=== PATIENT | female | born 1970 | race Hispanic/Latino ===

== ENCOUNTER 2017-10-29 08:08 | Observation (INO) | payer MEDICAID ==
[~2017-10-29] VITALS: Ht 162.6 cm; Wt 87.3 kg
[2017-10-29 08:37] LABS: BASOPHILS % (AUTO) 0.9 % (0.0-5.0); EOSINOPHILS % (AUTO) 1.4 % (0.0-8.0); HEMATOCRIT 45.1 % (36-48); LYMPHOCYTES % (AUTO) 28.5 % (21.0-51.0); MEAN CORPUSCULAR HEMOGLOBIN 30.1 pg (27.0-33.0); MEAN CORPUSCULAR HGB CONC 34.6 g/dL (32.0-36.0); MONOCYTES % (AUTO) 8.7 % (3.0-13.0); NEUTROPHILS % (AUTO) 60.5 % (40.0-77.0); PLATELET COUNT (AUTO) 362 K/uL (130-400); RED BLOOD CELL COUNT(AUTO) 5.19 MIL/uL (4.00-5.50); RED CELL DISTRIBUTION WIDTH 14.5 % (11.0-15.5); WHITE BLOOD COUNT (AUTO) 8.1 K/uL (4.8-10.8)
[2017-10-29 08:48] LABS: CARBON DIOXIDE 30 mmol/L (21-32); CHLORIDE 105 mmol/L (101-111); CREATININE 0.9 mg/dL (0.5-1.5); GLOMERULAR FILTR. RATE CALC 71 mL/min (>60); GLUCOSE,RANDOM 111 mg/dL (70-105); POTASSIUM 4.1 mmol/L (3.5-5.1); SODIUM SERUM 141 mmol/L (136-145); UREA NITROGEN, BLOOD 14 mg/dL (7-18)
[2017-10-29 09:01] LABS: ALANINE AMINOTRANSFERASE 37 U/L (12-78); ALBUMIN 4.3 g/dL (3.5-5.0); ASPARTATE AMINOTRANSFERASE 24 U/L (10-37); BILIRUBIN,TOTAL 0.7 mg/dL (0.2-1.0); CREATINE KINASE MB < 0.5 ng/mL (0.5-3.6); CREATINE KINASE, TOTAL 58 U/L (21-232); TOTAL PROTEIN, SERUM 7.7 g/dL (6.0-8.3)
[2017-10-29 09:10] LABS: INR 0.96 (0.85-1.15); PARTIAL THROMBOPLASTIN TIME 25.2 SEC (26.3-35.5); PROTHROMBIN TIME 10.1 SEC (9.6-11.6)
[2017-10-29 09:20] LABS: APPEARANCE,URINE Cloudy (CLEAR); BILIRUBIN,URINE Negative (NEGATIVE); COLOR,URINE Yellow (YELLOW); GLUCOSE, URINE (UA) Negative (NEGATIVE); KETONES,URINE Negative (NEGATIVE); LEUKOCYTE ESTERASE ,URINE Trace (NEGATIVE); NITRATE,URINE Negative (NEGATIVE); OCCULT BLOOD,URINE Negative (NEGATIVE); PROTEIN,URINE Negative (NEGATIVE); UROBILINOGEN,URINE 0.2 mg/dL (0.2-1.0)
[2017-10-29 09:34] LABS: BACTERIA,URINE Few /HPF (None Seen); SQUAMOUS EPITHELIAL CELL,UR Few /HPF (0-2); WBC,URINE 0-1 /HPF (0-1)
[2017-10-29 09:40] LABS: HCG,QUAL RESULT NEGATIVE (NEGATIVE)
[2017-10-29 10:07] LABS: CHOLESTEROL 219 mg/dL (<200); HDL CHOLESTEROL 41 mg/dL (35-85); LDL DIRECT 142 mg/dL (0-99); TRIGLYCERIDES 236 mg/dL (30-200)
[2017-10-29] MEDS ORDERED: LORAZEPAM 2 MG/ML 1 ML VIAL ONE (11:44)
[2017-10-29] MEDS ORDERED: ASPIRIN 81MG TAB.CHEW ONE ×2 (12:06→18:02)
[2017-10-29] MEDS: SODIUM CHLORIDE 0.9% 1000ML 1,000 ML IV SCH (16:00)
[2017-10-29] MEDS ORDERED: SODIUM CHLORIDE 0.9% 1000ML 1,000 ML IV ONE (18:02)
[2017-10-29] MEDS ORDERED: ACETAMINOPHEN 325 MG TAB ONE (18:25)
[2017-10-29] MEDS: ATORVASTATIN CALCIUM 20 MG TABLET PO SCH (21:00)
[2017-10-29] MEDS ORDERED: LORAZEPAM 1 MG TABLET ONE (21:21)
[2017-10-29] MEDS ORDERED: ATORVASTATIN CALCIUM 10 MG TABLET ONE (21:48)
[2017-10-29] MEDS ORDERED: HYDRALAZINE HCL 20 MG/ML VIAL IV PRN (22:00)
[2017-10-29 22:07] VITALS: BP 121/81
[2017-10-29] MEDS ORDERED: LORAZEPAM 1 MG TABLET PO SCH (23:00)
[2017-10-29 23:37] VITALS: BP 112/77
[2017-10-30] MEDS ORDERED: LORA0.5T83 PO (01:05)
[2017-10-30] MEDS ORDERED: SERT25TA PO (01:05)
[2017-10-30] MEDS ORDERED: ESOM20CA31 PO (01:05)
[2017-10-30 03:37] VITALS: BP 112/67
[2017-10-30 05:00] LABS: MEAN CORPUSCULAR HEMOGLOBIN 30.6 pg (27.0-33.0); MEAN CORPUSCULAR VOLUME 87.3 fL (79-99); PLATELET COUNT (AUTO) 344 K/uL (130-400); RED BLOOD CELL COUNT(AUTO) 4.47 MIL/uL (4.00-5.50); RED CELL DISTRIBUTION WIDTH 14.3 % (11.0-15.5); WHITE BLOOD COUNT (AUTO) 7.1 K/uL (4.8-10.8)
[2017-10-30 05:12] LABS: HEMOGLOBIN A1C 5.7 % (4.0-6.0)
[2017-10-30 05:28] LABS: CREATININE 0.8 mg/dL (0.5-1.5); MAGNESIUM 2.1 mg/dL (1.80-2.40); POTASSIUM 3.5 mmol/L (3.5-5.1); THYROID STIMULATING HORMONE 0.91 uIU/mL (0.36-3.74)
[2017-10-30] MEDS: SODIUM CHLORIDE 0.9% 1000ML 1,000 ML IV SCH ×2 (06:09→18:16)
[2017-10-30 07:00] VITALS: BP 124/80
[2017-10-30] MEDS: ASPIRIN 325 MG TABLET PO SCH (08:48)
[2017-10-30] MEDS ORDERED: LORAZEPAM 1 MG TABLET PO PRN ×2 (09:45→21:45)
[2017-10-30 11:38] VITALS: BP 122/91
[2017-10-30 16:26] VITALS: BP 114/76
[2017-10-30 20:00] VITALS: BP 116/75
[2017-10-30] MEDS: ATORVASTATIN CALCIUM 20 MG TABLET PO SCH (20:40)
[2017-10-30] MEDS ORDERED: LORAZEPAM 0.5 MG TABLET PO SCH (21:00)
[2017-10-31] VITALS: BP 110/76
[2017-10-31 04:00] VITALS: BP 114/72
[2017-10-31 07:51] VITALS: BP 114/76
[2017-10-31] MEDS: SODIUM CHLORIDE 0.9% 1000ML 1,000 ML IV SCH (08:00)
[2017-10-31] MEDS: ASPIRIN 325 MG TABLET PO SCH (08:23)
[2017-10-31] MEDS ORDERED: PANTOPRAZOLE SODIUM 40 MG TABLET.DR PO SCH (09:00)
[2017-10-31] MEDS ORDERED: SERTRALINE HCL 50 MG TABLET PO SCH (09:00)
[2017-10-31 11:40] VITALS: BP 133/68
== END 2017-10-31 17:00 | disposition home or self-care (01) ==
LOC: EDH 08:08 → EDHIP 08:09 → INTOOBSV 08:09 → 2DH 21:08
PROVIDERS: ADMIT Internal Medicine Critical Care Medicine; ATTEND Internal Medicine Critical Care Medicine
DX: G45.9 Transient cerebral ischemic attack, unspecified (principal); M48.02 Spinal stenosis, cervical region; E66.9 Obesity, unspecified; E78.5 Hyperlipidemia, unspecified; Z82.3 Family history of stroke; F41.9 Anxiety disorder, unspecified; F32.9 Major depressive disorder, single episode, unspecified; Z83.3 Family history of diabetes mellitus
CPT/HCPCS: 36415 ×2; 70450; 70544; 70547; 70551; 72141; 80048; 80053; 80061; 81001; 81025; 82550; 82553; 83036; 83735; 84443; 84484; 85025; 85027; 85610; 85651; 85730; 85732; 86038; 86140; 86147; 86160 ×2; 86215; 86255 ×3; 93306; 96360; 96361 ×2; 99285; G0378 ×57; J2060; J7030 ×2